=== PATIENT | male | born 1990 | race Caucasian/White ===

== ENCOUNTER 2017-04-24 03:32 | Day surgery (SDC) | payer OTHER ==
[~2017-04-24] VITALS: Ht 177.8 cm; Wt 83.3 kg
[2017-04-24] MEDS ORDERED: LIDOCAINE 1%, 20ML ONE (03:46)
[2017-04-24] MEDS ORDERED: SODIUM CHLORIDE FLUSH 10ML SYR IVF ONE (04:00)
[2017-04-24] MEDS ORDERED: LIDOCAINE 2%, 20ML SQ ONE (04:00)
[2017-04-24] MEDS ORDERED: CEFAZOLIN PMX 1GM/50ML 50 ML IVPB ONE (04:00)
[2017-04-24] MEDS ORDERED: SODIUM CHLORIDE 0.9% 1,000ML IVBOLUS ONE (04:00)
[2017-04-24] MEDS ORDERED: MORPHINE SULFATE 4 MG/ML, 1ML IV PRN (04:00)
[2017-04-24] MEDS ORDERED: DIPH,PERTUSS(ACELL),TET VAC/PF 0.5 ML IM-VACC ONE ×2 (04:00→04:05)
[2017-04-24] MEDS ORDERED: MORPHINE SULFATE 4 MG/ML, 1ML ONE (04:05)
[2017-04-24] MEDS ORDERED: CEFAZOLIN PMX 1GM/50ML 50 ML ONE (04:05)
[2017-04-24] MEDS ORDERED: LORazepam 2 MG/ML, 1ML ONE (04:24)
[2017-04-24] MEDS ORDERED: OMNIPAQUE 350 MG/ML, 100ML BOTTLE ONE (04:33)
[2017-04-24] MEDS ORDERED: LORazepam 2 MG/ML, 1ML IVPush ONE (05:30)
[2017-04-24] MEDS ORDERED: BUPIVACAINE/PF-EPI 0.5% 1:200K ONE ×2 (05:55→06:18)
[2017-04-24] MEDS ORDERED: LIDOCAINE 2%, 10ML ONE (06:07)
[2017-04-24] MEDS ORDERED: KETOROLAC 30 MG/1 ML ONE (06:07)
[2017-04-24] MEDS ORDERED: DEXAMETHASONE 4 MG/ML, 1ML ONE (06:07)
[2017-04-24] MEDS ORDERED: ONDANSETRON 2MG/ML, 2ML ONE (06:07)
[2017-04-24] MEDS ORDERED: PROPOFOL 10 MG/ML, 20ML ONE (06:07)
[2017-04-24] MEDS ORDERED: METOCLOPRAMIDE 5 MG/ML, 2ML ONE (06:07)
[2017-04-24] MEDS ORDERED: SUCCINYLCHOLINE 20 MG/ML, 10ML ONE (06:07)
[2017-04-24] MEDS ORDERED: FENTANYL PF 250 MCG/5ML ONE (06:16)
[2017-04-24] MEDS ORDERED: HEPARIN 1,000 UNITS/ML, 10ML ONE (06:18)
[2017-04-24] MEDS ORDERED: ONDANSETRON 2MG/ML, 2ML IVPush PRN ×2 (06:30→09:00)
[2017-04-24] MEDS ORDERED: FENTANYL PF 100 MCG/2ML IV PRN (06:30)
[2017-04-24] MEDS ORDERED: OXYcodone 5 MG/5 ML ORAL.SOL UDC PO PRN (06:30)
[2017-04-24] MEDS ORDERED: MIDAZOLAM 1 MG/ML, 2ML IV PRN (06:30)
[2017-04-24] MEDS ORDERED: HYDROmorphone 1 MG/ML, 1ML IV PRN (06:30)
[2017-04-24] MEDS ORDERED: LABETALOL 5MG/ML, 20ML IV PRN (06:30)
[2017-04-24] MEDS ORDERED: THROMBIN 5,000 UNIT VIAL TP ONE ×2 (06:30→06:52)
[2017-04-24] MEDS ORDERED: PROMETHAZINE 25 MG/ML, 1ML IV PRN (06:30)
[2017-04-24] MEDS ORDERED: MEPERIDINE/PF 25MG/0.5ML IVPush PRN (06:30)
[2017-04-24] MEDS ORDERED: BUPIVACAINE/PF-EPI 0.5% 1:200K INFIL ONE ×2 (06:50)
[2017-04-24] MEDS ORDERED: FENTANYL PF 100 MCG/2ML ONE (06:51)
[2017-04-24] MEDS ORDERED: MEPERIDINE/PF 25MG/0.5ML ONE (06:51)
[2017-04-24] MEDS ORDERED: OXYcodone 5 MG/5 ML ORAL.SOL UDC ONE (06:52)
[2017-04-24 08:10] VITALS: BP 116/65
[2017-04-24] MEDS ORDERED: HYDROcodone/APAP 5/325 TABLET PO PRN (09:00)
[2017-04-24] MEDS ORDERED: LACTATED RINGERS 1,000 ML IV SCH (09:00)
[2017-04-24] MEDS ORDERED: OXYcodone/APAP 5/325MG TABLET PO PRN (09:00)
[2017-04-24] MEDS ORDERED: MORPHINE SULFATE 4 MG/ML, 1ML IVPush PRN (09:00)
[2017-04-24] MEDS ORDERED: HYDR-3138 PO (09:52)
[2017-04-24 13:16] VITALS: BP 121/64
== END 2017-04-24 13:42 | disposition home or self-care (01) ==
LOC: ED 05:44 → UNDOADMIN 05:49 → EDIP 05:49 → OR 07:00 → EDIP 08:02 → 4NOR 08:02 → UNDODISIN 13:42 → OR 13:42
PROVIDERS: ATTEND Surgery
DX: S51.812A Laceration without foreign body of left forearm, initial encounter (principal); X58.XXXA Exposure to other specified factors, initial encounter; Y93.9 Activity, unspecified; Y92.9 Unspecified place or not applicable; Y99.9 Unspecified external cause status
CPT/HCPCS: 35206; 36415; 73201; 85025; 86850; 86900; 99291; J0330; J0690; J1100; J1644; J1885; J2405; J2704; J2765; J3010; J3490; J7030; Q9967